=== PATIENT | male | born 1965 ===

== ENCOUNTER → 2023-04-02 09:31 | Outpatient (CLI) | payer BC, SELFPAY ==
--- NOTE | ~2023-04-02 | US_ITS ---
Testicular ultrasound with doppler. Indication: Testicular mass. Technique: Real-time sonography the scrotum was performed. Color flow Doppler and Doppler spectral an alysis were performed. Findings: The testes are homogeneous in echotexture bilaterally. There is no evidence of an intrates ticular mass. The right testis measures 4.7 x 2.9 x 3.1 cm and the left 4.3 x 3.1 x 2.3 cm. There is color-flow seen to both testes. Arterial and venous spectral waveforms are seen in both testes. There is no sonographic evidence of torsion. The head of the epididymis is visualized bilaterally and is within normal limits. There is an ill-defined 9 mm hypoechoic area of posteromedial small mass in the body or tail of the left epididymis. Impression: No testicular mass or torsion. Questionable 9 mm mass in the left epididymal body or tail. This is indeterminate, though statistical ly, most epididymal lesions are benign. Reviewed, dictated and finalized at [facility]. Impression: No testicular mass or torsion. Questionable 9 mm mass in the left epididymal body or tail. This is indetermina te, though statistically, most epididymal lesions are benign.
== END ==
PROVIDERS: PCP Family Medicine; Visit Provider Family Medicine
DX: N50.89 Other specified disorders of the male genital organs (principal)
CPT/HCPCS: 76870; 93976